=== PATIENT | male | born 1965 | race Caucasian/White ===

== ENCOUNTER 2023-06-10 08:56 | Emergency (ER) | payer BC, SELFPAY ==
[2023-06-10 09:00] VITALS: BP 129/77
--- NOTE | 2023-06-10 10:22 | ED.GENMED ---
History of Present Illness
General
Chief Complaint: Back Pain
Time Seen by Provider: 06/10/23 09:53
Travel History
Have you had any contact with someone who has COVID-19?: No
Do you have any symptoms of coronavirus? Fever > 100 degrees, chills, cough, shortness of breath, sore throat, loss of taste or smell, muscle aches, or headache?: No
History of Present Illness
History of Present Illness:
57-year-old male with history of hypertension and hyperlipidemia presents to the emergency department for evaluation of right sided mid back pain at the right costovertebral angle that is been ongoing for the past 2 weeks. He states he thought this
was related to constipation however after using MiraLAX did have a successful bowel movement this morning. Denies any trauma. States he cannot twist or stand upright for a long period time without pain. Denies any anterior chest pain, dyspnea,
anterior abdominal pain, dysuria, or hematuria. Non-smoker.
Past History
Past History
ED Past Medical History: HTN; Negative Asthma, Hypercholesterolemia or NIDDM
ED Past Surgical History: Appendectomy and Urological
Patient has exhibited threatening behavior?: No
Social History
Tobacco: Non-smoker
Alcohol: Occasional
Personal:
Living: with family
Employment: Employed
Review of Systems
Review of Systems
Allergies reviewed?: Yes
All Other Systems: ROS reviewed and negative except as documented in HPI and ROS
Phy Exam
Physical Exam
Physical Exam:
GEN: Well appearing, NAD, WDWN
HEENT: Oral mucosa moist, no scleral icterus
Cardiac: Regular rate
Lung: No respiratory distress, no tachypnea
Abdomen: Soft, nontender, no CVA tenderness to percussion
MSK: No gross deformity or injuries. Focal point tenderness to the R costovertebral angle, no specific bony TTP
Skin: Good color, no pallor or jaundice, no rashes
Neuro: AO x3, moves all extremities freely
Psych: Calm, cooperative
Course
Orders/Labs/Results
Orders:
Orders
06/10/23 10:06
CR Ribs-right 3 Vw W/pa Chest* Urgent
Comment:
Reason For Exam: R flank pain
06/10/23 10:59
Urinalysis Reflex To Culture Urgent
Date Specimen was Collected: 06/10/23
Time Specimen was Collected: 10:49
Vital Signs
Initial and Last Documented VS:
Initial Vital Signs
Temp Pulse Resp BP Pulse Ox
98.4 F 65 20 129/77 98
06/10/23 09:00 06/10/23 09:00 06/10/23 09:00 06/10/23 09:00 06/10/23 09:00
Last Documented Vital Signs
Temp Pulse Resp BP Pulse Ox
98.4 F 65 20 129/77 98
06/10/23 09:00 06/10/23 09:00 06/10/23 09:00 06/10/23 09:00 06/10/23 09:00
MDM/Problems Addressed
MDM/Problems Addressed:
Patient has focal point tenderness to the right lower thoracic back. No midline bony tenderness. Chest and rib series films show no evidence for bony pathology or lung parenchymal disease. Urinalysis shows no hematuria concerning for renal colic
or renal cell mass. Likely musculoskeletal, discussed supportive care and return parameters
*Critical Care Note
Total Time (30-74mins, 75-104mins- exclusive of procedures): Not Applicable
ED Attending Note
-
Portions of this chart may have been created with voice recognition software.� Occasional wrong word or��sound alike� substitutions may have occurred due to the inherent limitations of voice recognition software.
Discharge Plan
Departure
Patient Disposition: Home (Routine Discharge)
Date of Disposition: 06/10/23
Time of Disposition: 11:12
Patient with high blood pressure during this ER visit?: No
Discharge Problem:
Acute right flank pain
Instructions: Flank Pain (DC)
Prescriptions:
New
methocarbamol 750 mg tablet
750 - 1,500 mg PO Q8H PRN (Reason: pain) Qty: 20 0RF
No Action
multivitamin 1 EACH tablet
1 ea PO DAILY
amlodipine 5 MG tablet
10 mg PO DAILY
omeprazole 20 MG capsule,delayed release(DR/EC)
20 mg PO DAILY
atorvastatin 40 mg Tablet
40 mg PO DAILY
ibuprofen 800 mg Tablet
800 mg PO DAILY
meloxicam 15 mg Tablet
15 mg PO DAILY
alprazolam [Xanax] 0.25 mg Tablet
0.25 mg PO HS
valsartan 160 mg Tablet
160 mg PO DAILY
aspirin 81 mg Capsule
81 mg PO DAILY
Medical Cannabis
1 dose inhalation PRN PRN (Reason: SLEEP)
oxycodone 5 mg tablet
5 mg PO Q4HPRN PRN (Reason: breakthrough/severe pain) Qty: 15 0RF
diazepam 5 mg tablet
5 mg PO HS PRN (Reason: muscle spasm) Qty: 12 0RF
prednisone 10 mg tablet
10 mg PO DIRECTED Qty: 43 0RF
Rx Instructions:
Once daily as follows: 60, 60, 50, 50, 40, 40 30, 30, 20, 20, 10, 10, 5, 5
Referrals:
Kim Aguirre DO [Family Provider] -
Interventions
Interventions:
*Risk Screen - Suicide Last Done: 06/10/23 09:00
*General Assessment Last Done: 06/10/23 09:00
*Neglect/Abuse Screening Last Done: 06/10/23 09:00
*Nursing Disposition Last Done: 06/10/23 11:27
ED-Musculoskeletal Assessment Last Done: 06/10/23 11:26
Discharge Date and Time
Discharge Date/Time: 06/10/23 11:43
Print Language: MAURITANIAN
[2023-06-10 11:08] LABS: Urine Albumin Negative (Neg - Trace); Urine Bilirubin Negative (Negative); Urine Character Clear (Clear); Urine Color Yellow; Urine Glucose Negative (Negative); Urine Ketone Negative (Negative); Urine Leukocyte Negative (Negative); Urine Nitrite Negative (Negative); Urine Occult Blood Negative (Negative); Urine Urobilinogen Negative (Neg - 1+)
== END 2023-06-10 11:43 | disposition home or self-care (01) ==
LOC: EMR 08:56
PROVIDERS: Physician Assistant; EMERGENCY PHYSICIAN Student in an Organized Health Care Education/Training Program; FAMILY PHYSICIAN Family Medicine
DX: R10.9 Unspecified abdominal pain (principal); I10 Essential (primary) hypertension
CPT/HCPCS: 99283; 71101; 81003

== ENCOUNTER 2023-06-15 09:19 | Emergency (ER) | payer BC, SELFPAY ==
[2023-06-15 09:33] VITALS: BP 130/69
--- NOTE | 2023-06-15 10:44 | ED.GENMED ---
History of Present Illness
General
Chief Complaint: Abdominal Symptoms
Source: patient
Time Seen by Provider: 06/15/23 10:24
Nursing documentation reviewed up to this point in time: agreed with
Travel History
Have you had any contact with someone who has COVID-19?: No
Do you have any symptoms of coronavirus? Fever > 100 degrees, chills, cough, shortness of breath, sore throat, loss of taste or smell, muscle aches, or headache?: No
History of Present Illness
History of Present Illness:
57 yr old male presents back to the ER for evaluation. Patient was seen here 5 days ago. Patient complains of abdominal pain and right back pain for the past 2 weeks. He complains of constipation which also started 2 weeks ago. He at times feels
pain that radiates from his right abdomen to his right back however he also feels that his right back is worse with walking movement. He does complain still of constipation and only moving his bowels very small amounts. This is a sudden change for
patient he normally moves his bowels every morning over the past several weeks has not.
He denies any injury however has been doing construction in his house and removed a tile floor recently.
He was seen by his family doctor and initially given a muscle relaxer and steroids. Patient denies any nausea vomiting.
Patient denies any difficulty urinating.
He last had a colonoscopy over 10 years ago.
Past History
Past History
ED Past Medical History: HTN; Negative Asthma, Hypercholesterolemia or NIDDM
ED Past Surgical History: Appendectomy and Urological
Patient has exhibited threatening behavior?: No
Social History
Tobacco: Non-smoker
Alcohol: Occasional
Personal:
Living: with family
Employment: Employed
Review of Systems
Review of Systems
Allergies reviewed?: Yes
All Other Systems: ROS reviewed and negative except as documented in HPI and ROS
Constitutional: Reports no symptoms; Denies fever, fatigue or chills
EENT: Reports no symptoms
Respiratory: Reports no symptoms
Cardiac: Reports no symptoms
ABD/GI: Reports abdominal pain
: Reports flank pain
Musculoskeletal: Reports back pain
Skin: Reports no symptoms
Neurological: Reports no symptoms
Hematologic/Lymphatic: Reports no symptoms
Psychiatric: Reports no symptoms
Phy Exam
General Physical Exam
General Presentation: no apparent distress
General age: appears stated age
General Skin: warm and dry
General Habitus: normal
General Mental: alert
General Hydration: appears well hydrated
Gastrointestinal Exam
Gastrointestinal Exam: non tender and soft
Neurological Exam
Neurological Exam: alert and oriented x3
Musculoskeletal Exam
Musculoskeletal Exam: full ROM and other (Patient is point tender to left mid back over thoracic region)
Skin Exam
Skin Exam: normal color and warm/dry
Psychiatric Exam
Psychiatric Exam: normal mood/affect
Course
Orders/Labs/Results
Orders:
Orders
06/15/23 11:12
CT Abd/Pel (IV only)-DH only Urgent
Comment:
Reason For Exam: abd pain radiating to back /hx of constipation
06/15/23 11:15
Complete Blood Count/With Diff Urgent
Comprehensive Metabolic Panel Urgent
Urinalysis Reflex To Culture Urgent
Date Specimen was Collected: 06/15/23
Time Specimen was Collected: 11:14
06/15/23 13:23
Ketorolac [Toradol] 15 mg IV NOW STA
06/15/23 14:19
Magnesium Citrate [Citroma] 300 ml PO ONCE ONE
Abnormal Lab Results
06/15/23
11:15
RBC 4.56 L 10^6/uL
(4.70-6.10)
Absolute Monos (auto) 0.7 H 10^3/uL
(0.1-0.6)
Monocytes % 11.0 H %
(1.7-9.3)
06/15/23 11:15
06/15/23 11:15
Vital Signs
Initial and Last Documented VS:
Initial Vital Signs
Temp Pulse Resp BP Pulse Ox
98.3 F 57 16 130/69 97
06/15/23 09:33 06/15/23 09:33 06/15/23 09:33 06/15/23 09:33 06/15/23 09:33
Last Documented Vital Signs
Temp Pulse Resp BP Pulse Ox
97.5 F 54 12 150/87 97
06/15/23 12:12 06/15/23 14:01 06/15/23 14:01 06/15/23 14:00 06/15/23 14:01
Small Engine Trainer consulted with Physician
Small Engine Trainer consulted with physician?: Yes
Name of Physician Consulted: Mary
MDM/Problems Addressed
Differential Diagnosis Includes:
Not limited to muscle pain, constipation, bowel obstruction, biliary colic less likely diverticulitis
MDM/Problems Addressed:
Patient is a 57-year-old male seen here 5 days ago. Patient complains of constipation/back pain. Patient had workup here in the ER including CAT scan which was negative for any acute findings. Patient has an old stable compression fracture of
T12. Patient does have some constipation on CAT scan, normal labs normal urine.
Patient is point tender over thoracic muscular region of back. He has been doing a lot of housework moving floors recently. Patient was given muscle laxer by family doctor. Patient received IV Toradol here in no acute distress stable for
discharge home. With regards to back pain will have patient take ibuprofen every 8 hours and he may continue muscle laxer's if needed discussed warm compresses. Regarding constipation discussed Colace patient does request something stronger will
discharge with magnesium citrate with close outpatient follow-up with family doctor.
*Critical Care Note
Total Time (30-74mins, 75-104mins- exclusive of procedures): Not Applicable
ED Attending Note
-
Portions of this chart may have been created with voice recognition software.� Occasional wrong word or��sound alike� substitutions may have occurred due to the inherent limitations of voice recognition software.
Discharge Plan
Departure
Patient Disposition: Home (Routine Discharge)
Patient with high blood pressure during this ER visit?: Yes
Condition: Fair
Covid-19: Not Applicable
Discharge Problem:
Constipation
Instructions: Constipation, Adult (DC), Back Pain, BLOOD PRESSURE
Prescriptions:
No Action
multivitamin 1 EACH tablet
1 ea PO DAILY
amlodipine 5 MG tablet
10 mg PO DAILY
omeprazole 20 MG capsule,delayed release(DR/EC)
20 mg PO DAILY
atorvastatin 40 mg Tablet
40 mg PO DAILY
ibuprofen 800 mg Tablet
800 mg PO DAILY
meloxicam 15 mg Tablet
15 mg PO DAILY
alprazolam [Xanax] 0.25 mg Tablet
0.25 mg PO HS
valsartan 160 mg Tablet
160 mg PO DAILY
aspirin 81 mg Capsule
81 mg PO DAILY
Medical Cannabis
1 dose inhalation PRN PRN (Reason: SLEEP)
diazepam 5 mg tablet
5 mg PO HS PRN (Reason: muscle spasm) Qty: 12 0RF
methocarbamol 750 mg tablet
750 - 1,500 mg PO Q8H PRN (Reason: pain) Qty: 20 0RF
Referrals:
Kim Aguirre DO [Family Provider] -
Elicia Momin MD [Active] -
Stand Alone Forms: Return to Work
Activity Restrictions/Additional Instructions:
For back pain may continue muscle relaxer. Ibuprofen every 8 hours with food. Warm moist heat to affected area several times a day
Regarding constipation increase fiber in your diet fresh fruits vegetables increase water intake avoid constipating foods such as bananas. You may use Colace [id number] stool softener. You will be given a bottle of magnesium citrate you may
take half the bottle when you get home and the additional half of the bottle tomorrow morning. Follow-up with your family doctor neck several days for reevaluation of your symptoms. Is also recommended they follow-up with GI as you have not had a
colonoscopy in the past 10 years and for new onset constipation.
Return if any worsening of symptoms.
Interventions
Interventions:
*Risk Screen - Suicide Last Done: 06/15/23 09:33
*General Assessment Last Done: 06/15/23 09:33
*Neglect/Abuse Screening Last Done: 06/15/23 09:33
ED- Fall Risk Assessment Last Done: 06/15/23 10:47
*ED COVID-19 Vaccine History Last Done: 06/15/23 10:47
*Nursing Disposition Last Done: 06/15/23 14:14
IF-Ubiebs-Ikwsnolyvg Assessment Last Done: 06/15/23 10:47
Discharge Date and Time
Discharge Date/Time: 06/15/23 14:32
Print Language: BULGARIAN
[2023-06-15 10:47] VITALS: BMI 30.5
--- NOTE | 2023-06-15 10:53 | EDRN ---
Tara Hawkins PRODUCTION MACHINE OPERATOR currently at the pts bedside speaking with the pt
[2023-06-15 11:00] VITALS: BP 123/79
[2023-06-15 11:34] LABS: % Eosinophils 2.8 % (0-6); % Immature Granulocytes 0.1 % (0-0.5); % Lymphocytes 26.6 % (20.5-51.1); % Neutrophils 58.5 % (42.2-75.2); Absolute Basophils 0.1 10^3/uL (0-0.2); Absolute Eosinophils 0.2 10^3/uL (0-0.7); Absolute Lymphocytes 1.8 10^3/uL (1.2-3.4); Absolute Monocytes 0.7 10^3/uL (0.1-0.6); Absolute Neutrophils 3.9 10^3/uL (1.4-6.5); Hematocrit 40.5 % (39.0-52.0); Hemoglobin 14.1 g/dL (13.0-18.0); Mean Corp Hgb Conc. 34.8 g/dL (33.0-37.0); Mean Corpuscular Hgb 30.9 pg (27.0-31.0); Mean Corpuscular Volume 88.8 fL (80.0-94.0); Mean Platelet Volume 10.1 fL (7.4-10.4); Nucleated Red Blood Cells % 0 % (-); Platelet Count 272 10^3/uL (130-400); Red Blood Cell Count 4.56 10^6/uL (4.70-6.10); White Blood Cell Count 6.7 10^3/uL (4.8-10.8)
[2023-06-15 11:41] LABS: ALT (SGPT) 24 U/L (0-50); AST (SGOT) 29 U/L (17-59); Albumin 4.2 g/dl (3.5-5.0); Alkaline Phosphatase 105 U/L (38-126); Blood Urea Nitrogen 17 mg/dl (9-20); Calcium 9.8 mg/dl (8.4-10.2); Carbon Dioxide 25 mmol/L (22-30); Chloride 103 mmol/L (98-107); Estimated Creatinine Clearance 122 ml/min; Glucose 84 mg/dl (70-99); Potassium 4.6 mmol/L (3.5-5.1); Sodium 135 mmol/L (135-145); Total Bilirubin 0.6 mg/dl (0.2-1.3); Total Protein 6.5 g/dl (6.3-8.2); eGFR > 60.00
[2023-06-15 11:43] LABS: Urine Albumin Negative (Neg - Trace); Urine Bilirubin Negative (Negative); Urine Character Clear (Clear); Urine Color Yellow; Urine Glucose Negative (Negative); Urine Ketone Negative (Negative); Urine Leukocyte Negative (Negative); Urine Nitrite Negative (Negative); Urine Occult Blood Negative (Negative); Urine Specific Gravity 1.015 (<1.030); Urine Urobilinogen Negative (Neg - 1+)
[2023-06-15 12:12] VITALS: BP 131/71
[2023-06-15 12:19] VITALS: BP 132/79
[2023-06-15 13:00] VITALS: BP 126/80
--- NOTE | 2023-06-15 13:57 | EDRN ---
Tara Hawkins MARKET EDITOR currently at the pts bedside speaking with the pt and the pts
[2023-06-15 14:00] VITALS: BP 150/87
[2023-06-15] MEDS: TORADOL 15 MG IV (14:04)
[2023-06-15] MEDS: CITROMA 300 ML PO (14:30)
== END 2023-06-15 14:32 | disposition home or self-care (01) ==
LOC: EMR 09:19
PROVIDERS: Nurse Practitioner; EMERGENCY PHYSICIAN Emergency Medicine; FAMILY PHYSICIAN Family Medicine
DX: K59.00 Constipation, unspecified (principal); I10 Essential (primary) hypertension
CPT/HCPCS: 99284; 96374; 74177; 80053; 81003; 85025; Q9967

== ENCOUNTER → 2024-10-08 07:18 | Outpatient (REF) | payer BC, SELFPAY | LOC: HWRCS 07:18 | PROVIDERS: ATTENDING PHYSICIAN Internal Medicine Cardiovascular Disease; FAMILY PHYSICIAN Family Medicine | DX: I11.9 Hypertensive heart disease without heart failure (principal) | CPT/HCPCS: 93306 ==

== ENCOUNTER → 2025-01-02 11:09 | Outpatient (REF) | payer OTHER, BC, SELFPAY | LOC: PAVMRI 11:09 | PROVIDERS: ATTENDING PHYSICIAN Family Medicine | DX: M54.12 Radiculopathy, cervical region (principal); M54.6 Pain in thoracic spine; M25.512 Pain in left shoulder | CPT/HCPCS: 72141; 72146; 73221 ==